=== PATIENT | female | born 1990 | race Caucasian/White ===

== ENCOUNTER 2016-10-30 15:20 | Emergency (ER) | payer OTHER ==
[~2016-10-30] VITALS: Ht 157.5 cm; Wt 79.1 kg
[~2016-10-30 15:20] MED LIST: DOCU-41 PO; HYDR-4003 PO; IBUP-1827 PO; PREN1TAB69 PO; PROC25SU30 RC; RIZA10TA23 PO
[2016-10-30 15:24] VITALS: BP 107/72; PULSE 111; RESP 16; O2SAT 97
[2016-10-30 18:09] LABS: BASOPHILS % (AUTO) 0.3 % (0-3); EOSINOPHILS % (AUTO) 3.1 % (0-5); Mean Corpuscular Hemoglobin 30.3 pg (27.0-35.0); Mean Corpuscular Volume 93.5 fL (81-100); NEUTROPHILS % (AUTO) 71.8 % (40-74); Platelet Count 305 bil/L (150-400)
[2016-10-30 18:59] VITALS: BP 101/66; PULSE 81; O2SAT 99
--- NOTE | 2016-10-30 19:36 | ED.REPORT ---
HPI- Female Date of Service Oct 30, 2016 ED Provider: Rowdy Curran MD Pt is a 25 y.o. female who presents to the ED c/o severe pelvic pain and excessive vaginal bleeding associated with menses onset 3 days ago. Pt reports that she had a tubal ligation on August 11 2016 and that she is currently having her first menses since the procedure. She likens the pelvic pain to the pain she experienced the day following her tubal ligation when she did not have access to pain medications. She denies cramping. Nursing Notes Stated Complaint: BLEEDING/PAIN DURING PERIOD Chief Complaint: Female Abdominal Pain Nursing Notes Reviewed: Yes ([facility] [employer], meds not reconciled) Allergies: Coded Allergies: drospirenone (Verified Allergy, Intermediate, 10/30/16) ethinyl estradiol (Verified Allergy, Intermediate, 10/30/16) oxycodone HCl (Verified Allergy, Unknown, N/V, 09/29/14) tea tree (Verified Allergy, Unknown, hives, 08/11/16) Uncoded Allergies: WALNUTS (Allergy, Unknown, hives, 08/11/16) Scheduled Norethindrone (Norethindrone) 0.35 Mg Tablet 0.35 MG PO DAILY Vit/Fe Fumarate/Fa-Expunged Drug, Do (-Expunged Drug, Do Not Renew!) 1 Each Tablet 1 EACH PO DAILY Scheduled PRN Docusate Sodium (Colace) 100 Mg Capsule 100 MG PO BID PRN PRN For Constipation Hydrocodone-Acetaminophen 5-325 mg (Hydrocodone-Acetaminophen 5-325 mg) 1 Each Tablet 1 TABLET PO Q4 PRN PRN For Mild Pain Hydrocodone-Acetaminophen 5-325 mg (Hydrocodone-Acetaminophen 5-325 mg) 1 Each Tablet 1-2 TABLET PO Q4H PRN PRN For Pain Ibuprofen (Ibuprofen) 600 Mg Tablet 600 MG PO Q6H PRN PRN For Mild Pain Prochlorperazine Maleate (Compazine Suppository) 25 Mg Supp.rect 25 MG RC Q8 PRN PRN For Nausea/Vomiting Rizatriptan ODT (Maxalt [employer]) 10 Mg Tablet 10 MG PO every 2 hours PRN PRN Headache General Time Seen by MD: 19:33 Chief Complaint Pelvic pain, Vaginal bleeding... Hx Obtained From: Patient Arrived By: Walk-in Sudden in Onset?: Yes Onset Occurred: 3 days ago Symptom Duration: Since onset Quality: Painful Severity: Current: Severe Past Medical History Past Medical History Recurrent strept throat Past Surgical History wisdom teeth removed Reports: Tubal ligation Smoking History Current Every Day Smoker Social History Alcohol Use: Denies alcohol use Drug Use: Denies drug use Ambulatory Status Independent Review of Systems Female: Reports: Pelvic pain, Vaginal bleeding - abnl Complete sys rev & neg: except as marked. Physical Exam Initial Vital Signs Vital Signs (First) Date Time Temp Pulse Resp B/P Pulse Ox O2 Delivery O2 Flow Rate FiO2 10/30/16 15:24 36.5 111 16 107/72 97 Room Air Initial VS: Reviewed, Vital signs abnormal Head / Eyes: Atraumatic, Normocephalic Extremities: Vascular intact, Neuro intact Skin: Warm, Dry, No cyanosis Neurologic: Alert, Oriented, Nonfocal Psychiatric: Mood/affect normal, Behavior normal, Normal thought content Female Genitourinary: Exam deferred General/Constitutional: Awake, Alert, No acute distress, Well appearing, Well developed, Well hydrated, Well nourished, Not toxic appearing Respiratory / Chest: Atraumatic, Breath sounds NL, Breath sounds = bilat, No respiratory distress Cardiovascular: Heart rate NL, Regular rhythm, Heart sounds NL, Peripheral circulation NL Abdomen: Atraumatic, Soft, Non-tender, No distention Interpretation & Diagnostics Lab Results Interpretation Result Diagram: 10/30/16 1755 Test 10/30/16 17:55 10/30/16 20:07 White Blood Count 9.7th/mm3 (3.8-10.1) Red Blood Count 4.29mil/mm3 (3.90-5.20) Hemoglobin 13.0g/dL (12.0-15.6) Hematocrit 40.1% (35.0-46.0) Mean Corpuscular Volume 93.5fL (81-100) Mean Corpuscular Hemoglobin 30.3pg (27.0-35.0) Mean Corpuscular Hemoglobin Concent 32.4% (32.0-37.0) Red Cell Distribution Width 14.3% (12.3-15.4) Platelet Count 305bil/L (150-400) Neutrophils (%) (Auto) 71.8% (40-74) Lymphocytes (%) (Auto) 19.5% (14-46) Monocytes (%) (Auto) 5.0% (4-12) Eosinophils (%) (Auto) 3.1% (0-5) Basophils (%) (Auto) 0.3% (0-3) Hold Blue Top Tube Received (Received) Hold Red Top Tube Received (Received) Hold Cornish Top Tube Received (Received) Hold [place] Top Tube Received (Received) Urine Color Bloody (YELLOW) Urine Appearance Hazy (CLEAR,HAZY) Urine pH 7.0 (5.0-8.0) Urine Specific [place] 1.020 (1.003-1.035) Urine Protein 100mg/dL (NEG,TRACE) Urine Glucose (UA) 100mg/dL (NEGATIVE) Urine Ketones Tracemg/dL (NEGATIVE) Urine Occult Blood Large (NEGATIVE) Urine Nitrite Positive (NEGATIVE) Urine Bilirubin Negative (NEGATIVE) Urine Urobilinogen 1.0mg/dL (NORMAL) Urine Leukocyte Esterase Small (NEGATIVE) Urine RBC 11-50/hpf (0-2) Urine WBC 0-5/hpf (0-5) Urine Epithelial Cells None/hpf (NONE-MOD) Urine Crystals None seen (NONE SEEN) Urine Bacteria None/hpf (NONE-FEW) Urine Hyaline Casts None/lpf (NONE) Urine Granular Casts None seen (NONE SEEN) Urine Waxy Casts None seen (NONE SEEN) Urine Red Blood Cell Casts None seen (NONE SEEN) Urine White Blood Cell Casts None seen (NONE SEEN) Urine Mucus None seen (None Seen) Urine Trichomonas None seen (NONE SEEN) Urine Yeast None (NONE SEEN) Urinalysis Comment None Urine Culture Reflexed Indicated Lab Results Interpretation: CBC normal negative Re-Eval/Medical Decision Med Decision/Clinical Course This is a 25-year-old female who is 4 months , just had her first period starting the past few days, reports heavier bleeding than normal in lots of terrible cramping with it. Denies fevers chills. She has no dysuria. SHe is afebrile and nontoxic and has a soft nontender abdomen. CBC is normal, is negative. I discussed options with her. The plan is to initiate ibuprofen, she can have some when necessary hydrocodone for additional pain control as well. Lastly discussed OCP therapy, the patient fortunately did not intolerant to the as OCP in the past, so at that point we will try the progesterone only therapy with 21 day course. The patient is discharged in stable condition routine precautions reviewed. I reviewed discharge instructions with the patient Source of Hx: Old records Re-Evaluation/Progress #1: Time of Eval: 20:00 Re-Evaluation/Progress Note: Physical exam performed. Discussed plan for discharge, pt understands and agrees with plan. Re-Evaluation/Progress #2: Time of Eval: 20:40 Re-Evaluation/Progress Note: Discussed with pt control allergy (sarah) and plan to use progesterone for taper. Pt understands and agrees with plan. Differential Diagnosis: Positive: Dysmenorrhea, Menorrhagia, Negative: , complete, , incomplete, , inevitable, , missed, Cellulitis, Ectopic preg, ruptured, Ectopic , Sexual abuse, confirmed, Sexual abuse, suspected, Sexually transmit disease, Third trimester bleeding, Tubo-ovarian abscess, Tubo-ovarian cyst Counseled Regarding: Diagnosis, Lab results Discharge & Departure Impression: Primary Impression: Dysmenorrhea Disposition: Home Discharge Condition All VS Reviewed: Yes Condition: Stable Additional Instructions: 1. Your blood tests were normal 2. Having a heavy, painful bleeding as your first period following a recent delivery and tubal ligation is not uncommon. 3. Take ibuprofen 400-800mg three times a day for pain - AND FOR BLEEDING. 4. You can take progesterone only (norethindrone) once a day for 21 days (not related to the hormones in Sarah) 5. If needed take hydrocodone/APAP 5/325 1-2 tabs up to every 4 hours as needed for pain. NOTE: This medication contains a narcotic and causes drowsiness. No driving for at least 4-6 hours after taking. 6. Follow-up with Dr. Kunz as needed 7. Return if new or worsening symptoms Referrals: Carey Kunz MD (PCP) Dayana Attestation Portions of this note were transcribed by Zeferino Esqueda. I, Dr. Curran personally performed the history, physical exam and medical decision-making; I reviewed and confirmed the accuracy of the information in the transcribed note. Signed by: Dayana Warren, 10/30/2016 and 2048. copies to: Carey Kunz MD, Matthew F MD Oct 30, 2016 19:36 ZEFERINO ESQUEDA Oct 30, 2016 19:53
[2016-10-30] MEDS ORDERED: HYDROcodone-APAP 5-325 mg Tablet PO ONE (19:55)
[2016-10-30 20:00] VITALS: BP 98/66; PULSE 94; O2SAT 97
[2016-10-30 20:29] LABS: APPEARANCE,URINE HAZY (CLEAR,HAZY); COLOR,URINE BLOODY (YELLOW)
[2016-10-30 20:30] LABS: OCCULT BLOOD,URINE LARGE (NEGATIVE)
[2016-10-30] MEDS ORDERED: NORE0.3520 PO (20:39)
[2016-10-30] MEDS ORDERED: HYDR-4003 PO (20:39)
[2016-10-30 20:51] VITALS: BP 98/66; PULSE 94; O2SAT 97
== END 2016-10-30 20:52 | disposition home or self-care (01) ==
LOC: SED 15:20
DX: N94.6 Dysmenorrhea, unspecified (principal); F17.200 Nicotine dependence, unspecified, uncomplicated; Z98.51 Tubal ligation status; Z88.8 Allergy status to other drugs, medicaments and biological substances; Z88.5 Allergy status to narcotic agent